=== PATIENT | male | born 1980 | race Caucasian/White ===

== ENCOUNTER 2021-07-21 13:28 | Emergency (ER) | payer OTHER, SELFPAY ==
[2021-07-21 13:29] VITALS: BP 139/98; PULSE 102; RESP 15; TEMP 36.4; O2SAT 99; BMI 31.7
--- NOTE | 2021-07-21 13:47 | RAD_ITS ---
STUDY: X-RAY - UNILATERAL RIBS ( LEFT ) WITH CHEST REASON FOR EXAM: Male, 40 years old. fall TECHNIQUE - RIBS: 4 view(s) of the ribs. TECHNIQUE - CHEST: Single PA view of the chest. COMPARISON: None. FINDINGS - RIBS: There are transverse lucencies along the anterior lateral rib 5 and 6 on the left. FINDINGS - CHEST: The lungs are clear and expanded. There is no demonstrated pleural abnormality. Normal size heart. Normal mediastinum and julio c. Normal visualized pulmonary arteries. Normal visualized aortic arch and descending thoracic aorta. Normal visualized thoracic spine. Normal visualized ribs, clavicles, and shoulders. There is no demonstrated abnormality of the visualized soft tissue structures of the upper abdomen. RAD/Ribs Uni Min 3V w/PA Chest IMPRESSION: RIBS: Findings concerning for minimally displaced transverse fractures of ribs 5 and 6 on the left, clinically correlate for site of pain. CHEST: No evidence of acute cardiopulmonary process. Electronically Signed: Carlos A Salcido DO at 14:20 EST ,
--- NOTE | 2021-07-21 14:29 | EX.ED.DYSGE1 ---
HPI History of Present Illness Chief Complaint: Fall Informant: patient Onset/Context/Timing Onset: Today Current Severity: Mild Maximum Severity: Moderate Narrative Narrative: Patient presents with left rib pain after a fall. Patient states he fell on ice at his home. He later directly on his left side and has pain to the left mid ribs. He denies shortness of breath. Did not strike his head and no loss of consciousness. PFSH PFSH Medical History no medical history no medical history Home Medications hydrocodone-acetaminophen 1 tab PO Q6H PRN 3 Days #10 tab 07/21/21 [Rx Last Taken Unknown] naproxen [Naprosyn] 500 mg PO BID PRN #20 tab 07/21/21 [Rx Last Taken Unknown] Allergy/AdvReac Type Severity Reaction Status Date / Time No Known Allergies Allergy Verified 07/21/21 13:28 ROS ROS ED Constitutional Constitutional ED: Denies chills or fever(s) Eyes Eyes: Denies change in vision ENT ENT ED: Denies sore throat Cardiovascular Cardiovascular: Reports chest pain Respiratory/Chest Respiratory/Chest: Denies cough or dyspnea Gastrointestinal Gastrointestinal: Denies abdominal pain, nausea or vomiting Genitourinary Genitourinary ED: Denies hematuria Musculoskeletal Musculoskeletal: Denies back pain or neck pain Integumentary Denies rash Neurologic Neurologic: Denies headache(s) or weakness Allergic/Immunologic Allergic/Immunologic ED: Denies urticaria EXAM Physical Exam Const Vital Signs: 07/21/21 13:29 Temperature 97.6 F L Temperature Source Temporal Pulse Rate 102 H Respiratory Rate 15 Blood Pressure 139/98 H Blood Pressure Mean 111 Pulse Ox 99 Oxygen Delivery Method Room Air Positive well nourished and well developed General Appearance ED: well developed HEENT Reports moist mucous membranes Eyes PERRL and EOMs intact bilaterally Neck supple Chest Wall Chest Narrative: Left lateral chest wall tenderness to palpation. No abrasions or ecchymosis noted. No crepitus. Resp normal respiratory effort and clear to auscultation bilaterally Cardio regular rate and regular rhythm GI non-tender Palpation: soft Extremity normal to inspection Neuro oriented x3 Sensorium / Orientation: alert Skin no rashes or lesions noted MDM MDM MDM Narrative Medical decision making narrative: Left rib series with chest x-ray obtained. Radiography Diagnostic Testing: Clinical Impression(s) from Imaging Studies Ribs w/Chest X-Ray 07/21/21 13:47 IMPRESSION: RIBS: Findings concerning for minimally displaced transverse fractures of ribs 5 and 6 on the left, clinically correlate for site of pain. CHEST: No evidence of acute cardiopulmonary process. Electronically Signed: Carlos A Salcido DO at 14:20 EST , Treatment and Re-Evaluation Comments:: No evidence of pneumothorax on my review. Radiology to rotation reviewed and believes there are 2 minimally displaced fractures of the left ribs 5 and 6. This does correlate to the area of the patient's pain. Patient be given work restrictions and prescriptions for naproxen/[place]. Discharge Plan Triage Chief Complaint: Fall ED Provider: Pilar Hurtado Dx/Rx/DC Orders Clinical Impression: Closed rib fracture Instructions: ED Rib Fracture Prescriptions: New naproxen [Naprosyn] 500 mg tablet 500 mg PO BID PRN (Reason: pain) Qty: 20 RF: 0 hydrocodone-acetaminophen 5-325 mg tablet 1 tab PO Q6H PRN (Reason: pain) 3 Days Qty: 10 RF: 0 Stand Alone Forms: ED Work / School Excuse Primary Care Provider: Pedro Luis Peralta Referrals: Pedro Luis Peralta MD [Primary Care Provider] - 1 Week Disposition Disposition: Home, Self Care
== END 2021-07-21 14:46 | disposition home or self-care (01) ==
PROVIDERS: Emergency Provider Emergency Medicine; PCP Family Medicine; Visit Provider Emergency Medicine
DX: S22.42XA Multiple fractures of ribs, left side, initial encounter for closed fracture (principal); W00.0XXA Fall on same level due to ice and snow, initial encounter; Y92.008 Other place in unspecified non-institutional (private) residence as the place of occurrence of the external cause; Z79.1 Long term (current) use of non-steroidal anti-inflammatories (NSAID)
CPT/HCPCS: 71101; 99282